=== PATIENT | female | born 1985 | race Asian ===

== ENCOUNTER → 2017-07-26 | Outpatient (CLI) | payer OTHER ==
[2017-07-26 11:29] LABS: GLUCOSE,FASTING GESTATIONAL 87 mg/dL (70-110)
== END ==
LOC: EDBD 10:02 → MLB 10:02
PROVIDERS: ATTEND Obstetrics & Gynecology
DX: Z34.90 Encounter for supervision of normal pregnancy, unspecified, unspecified trimester (principal)
CPT/HCPCS: 36415; 82951